=== PATIENT | male | born 1995 | race Two or more races ===

== ENCOUNTER 2025-10-09 17:17 | Emergency (ER) | payer MEDICAID ==
[~2025-10-09] VITALS: Ht 165.1 cm; Wt 68.9 kg
[2025-10-09] MEDS ORDERED: LIDO30AD10 TP (18:31)
[2025-10-09] MEDS ORDERED: IBUP-1957 PO (18:31)
[2025-10-09] MEDS ORDERED: ACET-2030 PO (18:31)
[2025-10-09] MEDS ORDERED: METH-649 PO (18:31)
[2025-10-09 18:37] VITALS: BP 128/76; TEMP 97.6; O2SAT 98
== END 2025-10-09 18:38 | disposition home or self-care (01) ==
LOC: ER 17:19
DX: M79.604 Pain in right leg (principal); M54.50 Low back pain, unspecified; Z79.1 Long term (current) use of non-steroidal anti-inflammatories (NSAID); Z79.899 Other long term (current) drug therapy